=== PATIENT | female | born 1985 | race Caucasian/White ===

== ENCOUNTER → 2017-02-08 | Outpatient (CLI) | payer BC ==
--- NOTE | 2017-02-09 22:18 | US ---
EXAMINATION TYPE: US pelvis complete transvag DATE OF EXAM: 02/08/2017 COMPARISON: NONE CLINICAL HISTORY: Pelvic Pain R10.2. TECHNIQUE: Transvaginal (TV) and Transabdominal (TA) Date of LMP: Unsure EXAM MEASUREMENTS: Uterus: 6.5 x 4.2 x 4.1 cm Endometrial Stripe: 0.6 cm Right Ovary: 2.2 x 1.3 x 1.1 cm Left Ovary: 2.9 x 1.6 x 1.8 cm 1. Uterus: Retroverted wnl 2. Endometrium: wnl 3. Right Ovary: wnl 4. Left Ovary: Multiple follicles visualized, largest measuring 1.6 x 1.0 x 0.9 cm 5. Bilateral Adnexa: wnl 6. Posterior cul-de-sac: wnl Urinary bladder is sonolucent. Posterior wall is normal IMPRESSION: 1. Left ovarian cyst. Follow-up exam is recommended following the next normal menstrual period.
== END | disposition home or self-care (01) ==
LOC: RADUSWWP 15:37
PROVIDERS: ATTEND Obstetrics & Gynecology
DX: N83.202 Unspecified ovarian cyst, left side (principal)
CPT/HCPCS: 76830; 76856

== ENCOUNTER → 2019-06-10 | Outpatient (CLI) | payer BC | END | disposition home or self-care (01) | LOC: LABWHC1 15:50 | PROVIDERS: ATTEND Dermatology | DX: L30.9 Dermatitis, unspecified (principal) | CPT/HCPCS: 36415; 86038 ==